=== PATIENT | male | born 1935 | race Caucasian/White ===

== ENCOUNTER 2017-03-29 11:32 | Emergency (ER) | payer OTHER ==
[~2017-03-29] VITALS: Ht 167.6 cm; Wt 63.3 kg
[2017-03-29] MEDS ORDERED: SODIUM CHLORIDE 0.9% 1000ML 500 ML IV STA (12:05)
[2017-03-29 12:25] VITALS: TEMP 36.9; O2SAT 96; Ht 167.6 cm; Wt 63.3 kg
[2017-03-29] MEDS ORDERED: LSN/10125 PO (12:26)
[2017-03-29] MEDS ORDERED: VERA1TAB PO (12:26)
[2017-03-29] MEDS ORDERED: ATOR-22 PO (12:26)
[2017-03-29] MEDS ORDERED: TAMS0.4C38 PO (12:26)
[2017-03-29 12:36] LABS: BASO % 0.3 %; BASO ABS # 0.02 K/uL (0-0.2); COMPLETE YES; EOS % 0.6 %; HEMATOCRIT 49.7 % (42-52); IG% 0.3 %; LYMPH % 23.7 %; MEAN CELL VOLUME 90.2 fL (80-100); MEAN CORPUSCULAR HEMOGLOBIN 30.3 pg (25-34); MEAN CORPUSCULAR HGB CONC 33.6 g/dl (32-36); MEAN PLATELET VOLUME 9.7 fL (7.4-10.4); MONO % 12.2 %; NEUT % 62.9 %; PLATELET COUNT 254 K/uL (130-400); RED BLOOD COUNT 5.51 M/uL (4.7-6.1); WHITE BLOOD COUNT 7.16 K/uL (4.8-10.8)
--- NOTE | 2017-03-29 12:51 | DIAGNOSTIC IMAGING REPORT ---
CHEST ONE VIEW PORTABLE CLINICAL HISTORY: EVALUATE ALTERED MENTAL STATUS/WEAKNESS dyspnea COMPARISON STUDY: No previous studies for comparison. FINDINGS: The bones soft tissues and hemidiaphragms are normal. The cardiomediastinal silhouette is normal. The lungs are clear. The pulmonary vasculature is normal. IMPRESSION: Negative chest. Electronically signed by: Ervin Cano M.D. 03/29/2017 12:50 PM Dictated Date/Time: 03/29/2017 12:50 PM
--- NOTE | 2017-03-29 12:51 | DIAGNOSTIC IMAGING REPORT ---
HEAD CT NONCONTRAST CT DOSE: 638.56 mGycm HISTORY: Mental status change EVALUATE ALTERED MENTAL STATUS/WEAKNESS TECHNIQUE: Multiaxial CT images of the head were performed without the use of intravenous contrast. Comparison: None. Findings: The paranasal sinuses and mastoid air cells are clear. The calvarium and skull base are intact. The ventricles and sulci are within normal limits. There is no mass, hematoma, midline shift, or acute infarct. Chronic small vessel change of aging Impression: No acute intracranial abnormality. Age-related chronic small vessel change Electronically signed by: Ervin Cano M.D. 03/29/2017 12:50 PM Dictated Date/Time: 03/29/2017 12:48 PM
[2017-03-29 12:59] LABS: ALT/SGPT 29 U/L (12-78); AST/SGOT 18 U/L (15-37); BLOOD UREA NITROGEN 20 mg/dl (7-18); BUN/CREATININE RATIO 20.8 (10-20); CALCIUM 9.7 mg/dl (8.5-10.1); CARBON DIOXIDE 29 mmol/L (21-32); CHLORIDE 105 mmol/L (98-107); CREATININE 0.95 mg/dl (0.60-1.40); GLUCOSE 74 mg/dl (70-99); POTASSIUM 3.8 mmol/L (3.5-5.1); SODIUM 143 mmol/L (136-145)
--- NOTE | 2017-03-29 12:59 | EMERGENCY ROOM VISIT NOTE ---
History Report prepared by Todd: Adrian Faust Under the Supervision of: Dr. Avery Schaeffer M.D. First contact with patient: 11:58 Chief Complaint: SYNCOPE Stated Complaint: HEADACHE History of Present Illness The patient is a 81 year old male who presents to the Emergency Room via EMS from [facility] with complaints of a witnessed syncopal episode occurring about 3 hours ago. The patient was sitting down and reading a magazine when he lost consciousness. He woke up on the floor. He hit the left side of his head. The patient denies feeling dizziness or lightheadedness prior to the syncopal episode. He was at baseline prior to the onset of his symptoms. He initially had a headache which has now resolved. The patient did have breakfast this morning. As per transfer records, his BSG was 73. He has a history of similar symptoms occurring about a year ago but a cause was not identified. He reports that he is under a lot of stress because of his 's illness and a federal court hearing coming up. The patient denies seizure-like activity, tongue-biting , neck pain, chest pain, shortness of breath, nausea, vomiting, urinary incontinence, or any other complaints. He denies any history of myocardial infarction. Source of History: patient Onset: about 3 hours ago Position: other (global) Quality: other (syncopal episode) Associated Symptoms: + headache, No neck pain, No chest pain, No SOB, No nausea, No vomiting Review of Systems See HPI for pertinent positives & negatives. A total of 10 systems reviewed and were otherwise negative. Past Medical & Surgical Medical Problems: (1) Kidney stones (2) Syncope Family History Patient reports no known family medical history. Social History Marital Status: Housing Status: other ([facility]) Occupation Status: other (Prisoner) Current/Historical Medications Scheduled Atorvastatin (Lipitor), 20 MG PO HS Hctz/Lisinopril (Lisinopril/Hctz 10/12.5 Mg), 1 TAB PO DAILY Tamsulosin Hcl (Flomax), 0.4 MG PO HS Verapamil (Calan), 80 MG PO DAILY Allergies Coded Allergies: Acetaminophen (Unverified Allergy, Unknown, UNKNOWN, 03/29/17) Iodine (Unverified Allergy, Unknown, UNKNOWN, 03/29/17) Oxycodone (Unverified Allergy, Unknown, UNKNOWN, 03/29/17) Sodium Chloride (Unverified Allergy, Unknown, UNKNOWN, 03/29/17) Physical Exam Vital Signs Date Time Temp Pulse Resp B/P (MAP) Pulse Ox O2 Delivery O2 Flow Rate FiO2 03/29/17 15:36 82 20 139/91 94 Room Air 03/29/17 14:41 68 20 132/60 100 Room Air 03/29/17 13:42 73 24 156/83 95 Room Air 03/29/17 13:28 66 03/29/17 13:01 72 19 151/65 96 Room Air 71 135/60 86 144/101 03/29/17 12:25 96 Room Air 03/29/17 12:25 36.9 77 15 112/73 95 Room Air 03/29/17 11:47 74 Physical Exam GENERAL: Patient is in no acute distress. HEENT: No acute trauma, normocephalic atraumatic, mucous membranes moist, no nasal congestion, no scleral icterus. NECK: No stridor, no adenopathy, no meningismus, trachea is midline. No c-spine tenderness. LUNGS: Clear to auscultation bilaterally, no wheeze, no rhonchi, breath sounds equal. HEART: Without murmurs gallops or rubs, regular rate and rhythm. ABDOMEN: Soft, nontender, bowel sounds positive, no hernias, no peritonitis. EXTREMITIES: No cyanosis or edema, full range of motion of all the joints without pain or difficulty, no signs for acute trauma. NEUROLOGIC: Oriented x 3, no acute motor or sensory deficits, no focal weakness. No cerebellar deficit or pronator drift. SKIN: No rash, no jaundice, no diaphoresis. Medical Decision & Procedures ER Provider Diagnostic Interpretation: Orthostatic vital signs were negative. X-ray results as stated below per interpretation by me and the radiologist: CHEST ONE VIEW PORTABLE CLINICAL HISTORY: EVALUATE ALTERED MENTAL STATUS/WEAKNESS dyspnea COMPARISON STUDY: No previous studies for comparison. FINDINGS: The bones soft tissues and hemidiaphragms are normal. The cardiomediastinal silhouette is normal. The lungs are clear. The pulmonary vasculature is normal. IMPRESSION: Negative chest. Electronically signed by: Ervin Cano M.D. 03/29/2017 12:50 PM Dictated Date/Time: 03/29/2017 12:[address] results as stated below per my review and radiologist interpretation: HEAD CT NONCONTRAST CT DOSE: 638.56 mGycm HISTORY: Mental status change EVALUATE ALTERED MENTAL STATUS/WEAKNESS TECHNIQUE: Multiaxial CT images of the head were performed without the use of intravenous contrast. Comparison: None. Findings: The paranasal sinuses and mastoid air cells are clear. The calvarium and skull base are intact. The ventricles and sulci are within normal limits. There is no mass, hematoma, midline shift, or acute infarct. Chronic small vessel change of aging Impression: No acute intracranial abnormality. Age-related chronic small vessel change Electronically signed by: Ervin Cano M.D. 03/29/2017 12:50 PM Dictated Date/Time: 03/29/2017 12:48 PM Laboratory Results 03/29/17 12:12 Red Blood Count 5.51, Mean Corpuscular Volume 90.2, Mean Corpuscular Hemoglobin 30.3, Mean Corpuscular Hemoglobin Concent 33.6, Mean Platelet Volume 9.7, Neutrophils (%) (Auto) 62.9, Lymphocytes (%) (Auto) 23.7, Monocytes (%) (Auto) 12.2, Eosinophils (%) (Auto) 0.6, Basophils (%) (Auto) 0.3, Neutrophils # (Auto ) 4.51, Lymphocytes # (Auto) 1.70, Monocytes # (Auto) 0.87, Eosinophils # (Auto ) 0.04, Basophils # (Auto) 0.02 03/29/17 12:12 Test 03/29/17 12:12 03/29/17 13:40 03/29/17 14:45 White Blood Count 7.16 K/uL (4.8-10.8) Red Blood Count 5.51 M/uL (4.7-6.1) Hemoglobin 16.7 g/dL (14.0-18.0) Hematocrit 49.7 % (42-52) Mean Corpuscular Volume 90.2 fL (80-100) Mean Corpuscular Hemoglobin 30.3 pg (25-34) Mean Corpuscular Hemoglobin Concent 33.6 g/dl (32-36) Platelet Count 254 K/uL (130-400) Mean Platelet Volume 9.7 fL (7.4-10.4) Neutrophils (%) (Auto) 62.9 % Lymphocytes (%) (Auto) 23.7 % Monocytes (%) (Auto) 12.2 % Eosinophils (%) (Auto) 0.6 % Basophils (%) (Auto) 0.3 % Neutrophils # (Auto) 4.51 K/uL (1.4-6.5) Lymphocytes # (Auto) 1.70 K/uL (1.2-3.4) Monocytes # (Auto) 0.87 K/uL (0.11-0.59) Eosinophils # (Auto) 0.04 K/uL (0-0.5) Basophils # (Auto) 0.02 K/uL (0-0.2) RDW Standard Deviation 44.9 fL (36.4-46.3) RDW Coefficient of Variation 13.5 % (11.5-14.5) Immature Granulocyte % (Auto) 0.3 % Immature Granulocyte # (Auto) 0.02 K/uL (0.00-0.02) Anion Gap 9.0 mmol/L (3-11) Est Creatinine Clear Calc Drug Dose 54.6 ml/min Estimated GFR () 86.7 Estimated GFR (Non- 74.8 BUN/Creatinine Ratio 20.8 (10-20) Calcium Level 9.7 mg/dl (8.5-10.1) Total Bilirubin 0.8 mg/dl (0.2-1) Aspartate Amino Transf (AST/SGOT) 18 U/L (15-37) Alanine Aminotransferase (ALT/SGPT) 29 U/L (12-78) Alkaline Phosphatase 99 U/L (45-117) Total Creatine Kinase 43 U/L (39-308) Total Protein 8.2 gm/dl (6.4-8.2) Albumin 4.3 gm/dl (3.4-5.0) Globulin 3.9 gm/dl (2.5-4.0) Albumin/Globulin Ratio 1.1 (0.9-2) Thyroid Stimulating Hormone (TSH) 1.450 uIu/ml (0.300-4.500) Urine Color YELLOW Urine Appearance CLEAR (CLEAR) Urine pH 8.0 (4.5-7.5) Urine Specific [place] 1.019 (1.000-1.030) Urine Protein NEG (NEG) Urine Glucose (UA) NEG (NEG) Urine Ketones NEG (NEG) Urine Occult Blood NEG (NEG) Urine Nitrite NEG (NEG) Urine Bilirubin NEG (NEG) Urine Urobilinogen NEG (NEG) Urine Leukocyte Esterase NEG (NEG) Troponin I < 0.015 ng/ml (0-0.045) Laboratory results reviewed by me. Medications Administered Medications (Trade) Dose Ordered Sig/Naima Route Start Time Stop Time Status Last Admin Dose Admin Sodium Chloride 500 ml @ 999 mls/hr Q31M STAT IV 03/29/17 12:05 03/29/17 12:43 DC 03/29/17 12:59 999 MLS/HR ECG Indication: syncope Rate (beats per minute): 68 Rhythm: normal sinus Findings: no acute ischemic change, no ectopy ED Course 1158: The patient was evaluated in room B07. A complete history and physical exam was performed. 1205: Sodium Chloride 500 ml @ 999 mls/hr IV 1429: Getting a repeat [id number] troponin now. 1531: Reevaluated the patient. Discussed results and discharge instructions: He verbalized understanding and agreement. The patient is ready for discharge. Medical Decision Differential diagnosis includes but is not limited to vasovagal syncope, dehydration, dysrhythmia, anemia, [place], intracranial bleeding, infection. There is no leukocytosis or concerning anemia. No significant electrolyte abnormality, kidney failure or hepatitis. EKG shows a normal sinus rhythm, no acute ischemia. Cardiac enzyme testing 2 is not consistent with acute cardiac injury. Chest x-ray shows no pneumonia, mediastinal widening or pneumothorax. Brain CT shows no acute bleed or mass effect. No skull fracture. Urinalysis does not show infection. The patient appears to be in a euthyroid state. Orthostatic vital signs were negative. The patient received a small bolus of IV saline, he has done well. He feels back to baseline, his headache has resolved. The reason for the syncopal spell is unclear. He has not suffered any significant trauma from the incident. He had a similar event happen to him a few years ago. The patient was reassured. I think he can be watched in the infirmary at the half-way. I do not think admission is warranted. The patient was reassured and discharged. If worsening, he can return. Impression Primary Impression: Syncope Additional Impression: Head trauma Scribe Attestation The scribe's documentation has been prepared under my direction and personally reviewed by me in its entirety. I confirm that the note above accurately reflects all work, treatment, procedures, and medical decision making performed by me. Departure Information Dispostion Home / Self-Care Referrals Carmen NORRIS (PCP) Forms HOME CARE DOCUMENTATION FORM, IMPORTANT VISIT INFORMATION Patient Instructions My [facility] Additional Instructions brain CT scan was done--no acute bleeding or acute fracture heart testing and lab testing was all ok return for worsening symptoms stay [facility] for monitoring Problem Qualifiers
[2017-03-29 13:01] LABS: ALB/GLOB RATIO 1.1 (0.9-2)
[2017-03-29 13:12] LABS: ALKALINE PHOSPHATASE 99 U/L (45-117)
[2017-03-29 14:40] LABS: URINE APPEARANCE CLEAR (CLEAR); URINE BILIRUBIN NEG (NEG); URINE COLOR YELLOW; URINE NITRITE NEG (NEG); URINE SPECIFIC GRAVITY 1.019 (1.000-1.030); UROBILINOGEN NEG (NEG); ZZUR CULT IF INDIC CLEAN CATCH NO
[2017-03-29 15:01] LABS: MANUAL MICROSCOPIC REQUIRED? NO; REVIEW REQ? NO
[2017-03-29 15:36] VITALS: BP 139/91; PULSE 82; O2SAT 94
== END 2017-03-29 15:45 | disposition home or self-care (01) ==
LOC: EDBD 11:32 → C.EDB 11:34
DX: R55 Syncope and collapse (principal); S09.90XA Unspecified injury of head, initial encounter; W19.XXXA Unspecified fall, initial encounter; W22.09XA Striking against other stationary object, initial encounter; Y92.149 Unspecified place in prison as the place of occurrence of the external cause; Y99.8 Other external cause status; Z87.442 Personal history of urinary calculi; Z79.899 Other long term (current) drug therapy

== ENCOUNTER → 2017-05-17 | Outpatient (CLI) | payer OTHER ==
[~2017-05-17] MED LIST: ATOR-22 PO; LSN/10125 PO; TAMS0.4C38 PO; VERA1TAB PO
== END | disposition home or self-care (01) ==
LOC: C.PATHSPEC 11:40
PROVIDERS: ATTEND Surgery
DX: D49.2 Neoplasm of unspecified behavior of bone, soft tissue, and skin (principal)